=== PATIENT | male | born 1990 | race Caucasian/White ===

== ENCOUNTER 2023-11-05 12:23 | Emergency (ER) | payer BC, SELFPAY ==
[2023-11-05 12:24] VITALS: BP 127/96; PULSE 82; RESP 16; TEMP 36.6; O2SAT 97; BMI 32.1
[2023-11-05 12:33] VITALS: PULSE 82; O2SAT 97
--- NOTE | 2023-11-05 12:40 | PC.NURSE ---
Dr. Donald at [facility] for pt eval
--- NOTE | 2023-11-05 12:50 | HMH.EDGENADL ---
Discharge Plan Disposition Patient Disposition: Home, Self-Care Prescriptions Prescriptions: New diphenoxylate-atropine [Lomotil] 2.5-0.025 mg tablet 1 tab PO Q8H PRN (Reason: diarrhea) Qty: 14 0RF ondansetron 4 mg tablet,disintegrating 4 mg PO Q6H PRN (Reason: nausea and vomiting) Qty: 10 0RF Referrals Follow up/Referrals: Provider,Referral, MD [Primary Care Provider] - See instructions Activity Restrictions/Add. Instructions Additional Instructions/Restrictions: Call your family doctor to establish care for this visit to the emergency department and schedule follow-up within 48 hours to ensure improvement. If you have any worsening of your condition or any other concerning signs or symptoms, return to the emergency department or your primary care doctor for further evaluation. Zofran and Lomotil as prescribed. Clinical Impressions Clinical Impression: Gastroenteritis Stand Alone Forms Stand Alone Forms: Work/School Release Instructions Patient Instructions: DI for Diarrhea and Traveler's Diarrhea -- Adult, DI for Diarrhea and Traveler's Diarrhea -- Child, DI for Nausea -- Adult, DI for Nausea -- Child Discharge ED Provider: Elia Donald General Adult HPI General Chief complaint: Nausea/Vomiting/Diarrhea Stated complaint: diarrhea, weakness Time Seen by Provider: 11/05/23 12:29 Mode of Arrival: Ambulatory Source of Information: Patient Limitations: No Limitations Description of Symptoms (Recalled from ER Triage Doc. by RN): c/o diarrhea that started Saturday as a yellow fish food smell and has progressed today into a black color. states that he has been going since Saturday every 10 minutes. Reports today that he hasnt went in a few hours. [place] a little light headed when he tried to get off the couch earlier. 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 Patient states that he has had diarrhea since 4 days prior to this visit. It is watery, he has been able to keep down plenty of p.o. intake including liquids and solids, but has bowel movements every 20 to 30 minutes. Blood or mucus in the bowel. No fevers or chills, abdominal pain. He is nauseated has not vomited. Multiple sick contacts at work. Please note that above description of symptoms, in this electronic medical record under categorization of recalled from ER triage doctor by RN are reflective of an initial nursing assessment, however, is not reflective of my full history and physical exam that was personally taken and clarified. Consequentially, this preceding description of symptoms, which may include the patient's categorized chief complaint in the EMR, do not reflect my personal clinical impression, and the ultimate description of history of present illness and patient stated complaints should be deferred to this section of the note. Unless stated otherwise or congruent with this section of the note, additional signs, symptoms, or incongruence should be interpreted as inaccurate with my clinical impression. Related Data Previous Rx's Medication Instructions Recorded diphenoxylate-atropine 2.5 1 tab PO Q8H PRN diarrhea #14 tabs 11/05/23 mg-0.025 mg tablet (Lomotil) ondansetron 4 mg disintegrating 4 mg PO Q6H PRN nausea and 11/05/23 tablet vomiting #10 tabs Allergies Allergy/AdvReac Type Severity Reaction Status Date / Time No Known Allergies Allergy Unverified 11/05/23 12:53 [facility] Disclaimer: The information contained in this section may have been updated after the patient was seen, as this information can be updated by other users. Social History Smoking Status: Former smoker alcohol intake: never current occupational status: employed Travel in the last 8 weeks: None ROS Obtained: Yes All systems reviewed & no additional complaints except as documented Physical Exam General General appearance: alert and in no apparent distress Head Head exam: atraumatic and normocephalic Eye Eye exam: Present normal appearance, PERRL and EOMI ENT ENT exam: Present mucous membranes moist Neck Neck exam: Present normal inspection, full ROM and trachea midline Respiratory Respiratory exam: Absent respiratory distress, wheezes, stridor, accessory muscle use or prolonged expiratory phase Cardiovascular Cardiovascular exam: Present normal rhythm Abdominal Exam Abdominal exam: Present soft; Absent distention, tenderness, guarding, rebound or rigidity Extremities Exam Extremities exam: Absent edema Neurological Exam Neurological exam: Present alert, oriented X3, CN II-XII intact and normal gait; Absent motor sensory deficit Skin Skin exam: Present warm and dry; Absent diaphoresis or erythema Medical Decision Making Medical Records Medical records reviewed: Yes I reviewed the patient's medical records. Marv Inquiry Pt receiving controlled substance: No Marv was queried for this patient: No Vital Signs: 11/05/23 12:24 11/05/23 12:33 11/05/23 13:30 Temperature 98 F Temperature Source Oral Pulse Rate 82 65 Pulse Rate [Left Radial] 82 Respiratory Rate 16 Blood Pressure 106/64 L Blood Pressure [Right Arm] 127/96 H Blood Pressure Mean [Right Arm] 106 Blood Pressure Source [Right Arm] Automatic Cuff Blood Pressure Position [Right Arm] Sitting 02 Sat by Pulse Oximetry 97 97 98 Oxygen Delivery Method Room Air 11/05/23 13:33 Temperature Temperature Source Pulse Rate 66 Pulse Rate [Left Radial] Respiratory Rate Blood Pressure 106/64 L Blood Pressure [Right Arm] Blood Pressure Mean [Right Arm] Blood Pressure Source [Right Arm] Blood Pressure Position [Right Arm] 02 Sat by Pulse Oximetry 97 Oxygen Delivery Method Room Air Lab Data Lab Results 11/05/23 12:50: WBC 10.4, RBC 5.62, Hgb 16.9, Hct 51.5, MCV 91.8, MCH 30.1, MCHC 32.7, RDW 13.3, Plt Count 407, MPV 7.1 L, Neut % (Auto) 69.5, Lymph % (Auto) 16.4, [place] % (Auto) 5.3, Eos % (Auto) 7.6, Baso % (Auto) 1.1, Neut # (Auto) 7.3, Lymph # (Auto) 1.7, [place] # (Auto) 0.6, Eos # (Auto) 0.8 H, Baso # (Auto) 0.1, Sodium 140, Potassium 3.9, Chloride 109 H, Carbon Dioxide 20 L, Anion Gap 14.9, BUN 15, Creatinine 0.90, Estimated Creat Clear 174, Estimated GFR 98, Est GFR ( Amer) 118, Glucose 105 H, Calcium 9.6, Total Bilirubin 0.4, AST 22, ALT 18, Alkaline Phosphatase 62, Total Protein 8.1, Albumin 4.9, Globulin 3.2, Albumin/Globulin Ratio 1.5 11/05/23 12:50 11/05/23 12:50 Orders (Tests/Meds): ED MEDICATIONS Generic Name Dose Route Start Last Admin Trade Name Freq PRN Reason Stop Dose Admin Lactated Ringer's 2,000 mls @ 999 mls/hr 11/05/23 12:44 11/05/23 13:00 Lactated Ringer's 1000 Ml Bag IV 11/05/23 14:44 999 mls/hr .Q2H1M ONE Administration Discontinued Medications Generic Name Dose Route Start Last Admin Trade Name Juli PRN Reason Stop Dose Admin Diphenoxylate HCl/Atropine 5 mg 11/05/23 12:44 11/05/23 12:59 Diphenoxylate/Atropine 2.5mg Tablet PO 11/05/23 12:45 5 mg ONCE ONE Administration Ondansetron HCl 4 mg 11/05/23 12:44 11/05/23 12:59 Ondansetron 4mg/2ml Vial IV 11/05/23 12:45 4 mg ONCE ONE Administration ORDERS Category Date Time Status CBC w/Auto Diff [Complete Blood Count Auto Diff] Stat Lab 11/05/23 12:50 Completed CMP [Comprehensive Metabolic Panel] Stat Lab 11/05/23 12:50 Completed Diarrhea 6-11 Panel, Cdiff PCR Stat Lab 11/05/23 12:44 Ordered Medical Decision Narrative: 33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 Patient states that he has had diarrhea since 4 days prior to this visit. It is watery, he has been able to keep down plenty of p.o. intake including liquids and solids, but has bowel movements every 20 to 30 minutes. Blood or mucus in the bowel. No fevers or chills, abdominal pain. He is nauseated has not vomited. Multiple sick contacts at work. Patient has no personal or family history of IBS, IBD, GI illness. History was obtained via conversation with patient. On arrival, patient hemodynamically stable, alert, oriented x4, appropriate, GCS 15, moving all extremities spontaneously, pupils equal and reactive to light. Full physical exam performed and significant for abdomen is soft, nontender, nondistended. Patient is in no acute distress. Is normotensive, nontachycardic, afebrile and very well-appearing. Differential includes enteritis, gastroenteritis, IBS, IBD, among others. Patient was given 2 L LR, Zofran, Lomotil for symptomatic management and correction of underlying abnormalities. Workup independently interpreted and significant for no leukocytosis. Electrolytes within normal limits. Kidney function normal. Patient unable to produce stool sample here in the emergency department. On reevaluation, patient feeling much better after fluids and Lomotil. Given patient presentation, workup, history, this most likely represents infectious gastroenteritis because patient at baseline without signs or symptoms of clinical decompensation, deemed appropriate for discharge. Results were relayed to patient who voiced understanding and were agreeable to outpatient management and follow up. I discussed my clinical impression with patient and answered all questions. At this time, the evidence for any other entities in the differential is insufficient to warrant any further testing or ED observation. This was explained as well. Advisory was given that persistent or worsening symptoms require further evaluation. I confirmed the understanding of this discussion. Critical Care Critical Care Time Critical Care Time: No
[2023-11-05] MEDS: DIPHENOXYLATE/ATROPINE 2.5MG TABLET 5 MG PO (12:59)
[2023-11-05] MEDS: ONDANSETRON 4MG/2ML VIAL 4 MG IV (12:59)
[2023-11-05] MEDS: LACTATED RINGERS 1000ML 2,000 ML 999 ML IV (13:00)
[2023-11-05 13:10] LABS: Basophils # 0.1 K/mm3 (0-0.2); Basophils % 1.1 % (0.1-2.0); Eosinophils # 0.8 K/mm3 (0.0-0.4); Eosinophils % 7.6 % (0.1-12.0); Hematocrit 51.5 % (42.0-52.0); Hemoglobin 16.9 g/dL (14.1-18.0); Lymphocytes # 1.7 K/mm3 (0.7-4.5); Lymphocytes % 16.4 % (10-50); Mean Corpuscular HGB Conc 32.7 g/dL (31.8-35.4); Mean Corpuscular Hemoglobin 30.1 pg (27.0-31.2); Mean Corpuscular Volume 91.8 fl (80-94); Mean Platelet Volume 7.1 fl (7.4-10.4); Monocytes # 0.6 K/mm3 (0.1-1.0); Monocytes % 5.3 % (1.7-9.3); Neutrophils # 7.3 K/mm3 (1.8-7.8); Neutrophils % 69.5 % (37.0-80.0); Platelet Count 407 K/mm3 (142-424); Red Blood Count 5.62 M/mm3 (4.60-6.20); Red Cell Distribution Width 13.3 % (11.5-17.5); White Blood Count 10.4 K/mm3 (4.8-10.8)
[2023-11-05 13:17] LABS: Alanine Aminotransferase 18 U/L (12-78); Albumin Level 4.9 g/dl (3.5-5.0); Albumin/Globulin Ratio 1.5 (1.1-1.8); Alkaline Phosphatase 62 U/L (38-126); Anion Gap 14.9 mEq/L (5-15); Aspartate Amino Transferase 22 U/L (17-59); Bilirubin,Total 0.4 mg/dl (0.2-1.3); Blood Urea Nitrogen 15 mg/dl (9-20); Calcium 9.6 mg/dl (8.4-10.2); Carbon Dioxide 20 mmol/L (22.0-30.0); Chloride 109 mmol/L (98-107); Creatinine Clearance Estimated 174 mL/min (50-200); Estimated Glomerular Filt Rate 98 ml/min (>60); GFR (African American) 118 ML/MIN (>60); Globulin 3.2 g/dL (1.3-3.2); Glucose 105 mg/dl (74-100); Potassium 3.9 mmoL/L (3.5-5.1); Sodium 140 mmol/L (136-145); Total Protein,Serum 8.1 g/dl (6.3-8.2)
--- NOTE | 2023-11-05 13:24 | PC.NURSE ---
Rounded on pt. No needs voiced at this time. Call light remains within reach.
[2023-11-05 13:30] VITALS: BP 106/64; PULSE 65; O2SAT 98
[2023-11-05 13:33] VITALS: BP 106/64; PULSE 66; O2SAT 97
[2023-11-05 14:41] VITALS: BP 106/64; PULSE 59; RESP 16; TEMP 36.6; O2SAT 98
== END 2023-11-05 14:43 | disposition home or self-care (01) ==
PROVIDERS: Emergency Provider Emergency Medicine
DX: K52.9 Noninfective gastroenteritis and colitis, unspecified (principal); R42 Dizziness and giddiness; R53.1 Weakness; Z87.891 Personal history of nicotine dependence
CPT/HCPCS: 80053; 85025; 96361; 96374; 99284; J2405